=== PATIENT | female | born 1970 | race Asian ===

== ENCOUNTER 2025-07-13 12:45 | Day surgery (SDC) | payer OTHER ==
[~2025-07-13] VITALS: Ht 162.6 cm; Wt 69.5 kg
[2025-07-13] VITALS (34 sets, daily range): BP systolic 98–188; BP diastolic 55–106
[~2025-07-13 12:45] MED LIST: Betamethasone V15 GM; CLOBETASOL EMOL15 G1; ESTRADIOL42.5 GM VAG; METF500 PO; MOME.1TO; PREN-16 PO; Pentoxifylline400 MG PO
--- NOTE | 2025-07-13 14:09 | NUR ---
AMBULATORY INTO [facility]. HISTORY AND ALLERGIES REVIEWED. SBP 180'S. PT REPORTS FEELING ANXIOUS REGARDING PROCEDURE. LUNGS CLEAR-SATS>90% ON RA.BOWEL PREP AND NPO STATUS CONFIRMED. PT SPOUSE JIMY IS HER RIDE HOME TODAY.
--- NOTE | 2025-07-13 14:37 | NUR ---
07/13/25 1179 Konrad Cyr CONFIRMED AND REVIEWED H&P, MEDCICATIONS, ALLERGIES, MEDICAL HISTORY, RESPIRATORY HISTORY, VITAL SIGNS, 3-LEAD EKG, CONSENTS, AND PHYSICIAN ORDERS. PATIENT CONFIRMS NPO STATUS AND AGREES WITH SCHEDULED PROCEDURE. MONITOR INTACT WITH CONTINUOUS PULSE OXIMETRY, CAPNOGRAPHY, 3-LEAD EKG, INTERMITTENT BP. SUPPLEMENTAL O2 TO BE TITRATED THROUGHOUT PROCEDURE TO MAINTAIN O2 SATURATION ABOVE 90%. PATIENT DETERMINED TO BE ASA APPROPRIATE FOR PROPOFOL SEDATION PRIOR TO START OF PROCEDURE BY DR. MEZA. PINK LOANER SCOPE USED FOR PROCEDURE. [id number].
--- NOTE | 2025-07-13 16:00 | NUR ---
Patient up to Ambulate independently. Gait steady. Discharge instructions reviewed with patient. Patient verbalizes understanding. Copy given to patient to take home. Patient States Post-Procedure ride home has been arranged. Discharged via wheelchair to private car for ride home. PT TOLERATING PO, REPORTS READY TO GO HOME.
== END 2025-07-13 16:00 | disposition home or self-care (01) ==
LOC: ORSCMMR 12:45 → ORD 14:30 → ORSCMMR 14:30
PROVIDERS: Family Medicine
PROC: 0DBH8ZX Excision of Cecum, Via Natural or Artificial Opening Endoscopic, Diagnostic (ICD-10-PCS; principal; 2025-07-13 14:30)
PROC: 0DBP8ZX Excision of Rectum, Via Natural or Artificial Opening Endoscopic, Diagnostic (ICD-10-PCS; principal; 2025-07-13 14:30)
DX: Z12.11 Encounter for screening for malignant neoplasm of colon (principal); C7A.026 Malignant carcinoid tumor of the rectum; K63.5 Polyp of colon; E11.9 Type 2 diabetes mellitus without complications; E78.5 Hyperlipidemia, unspecified; Z79.899 Other long term (current) drug therapy
CPT/HCPCS: 82947; 88305; 88341; 88342; J2704; J7120